=== PATIENT | female | born 1950 | race Caucasian/White ===

== ENCOUNTER → 2019-02-23 | Outpatient (CLI) | payer BC, MEDICARE ==
[~2019-02-23] MED LIST: DICL75ER; DOXY100 PO; FLUSAL2505 IH; FLUT.05NI; GABA100; LEVFLO500 PO; Norco 5-325 Ta1 EACH PO; ONDA4ODT MM; RALO60; RANI150 PO; SERT100 PO; THEO300ER PO; THEO300ERC PO; [UNRECOGNIZED DRUG - REMARK]
[2019-02-23 10:49] LABS: Alanine Aminotransfer (ALT/SGP 30 U/L (12-78); Albumin, Blood 3.9 g/dL (3.4-5.0); Albumin/Globulin Ratio 1.2 (0.8-1.8); Alk Phos 88 U/L (50-136); Anion Gap 6 mmol/L (6-16); Aspartate Aminotrans (AST/SGOT 14 U/L (12-37); Bilirubin, Total 0.2 mg/dL (0.1-1.0); Blood Urea Nitrogen 32 mg/dL (8-24); Bun/Creatinine Ratio 39.7 (12.0-20.0); CO2, Blood 26 mmol/L (21-32); Calcium, Blood 9.4 mg/dL (8.5-10.1); Chloride, Blood 110 mmol/L (98-108); Creatinine, Blood 0.81 mg/dL (0.40-1.00); Globulin, Blood 3.3 g/dL (2.2-4.0); Glomerular Filtration Rate >60 (60-); Glucose, Blood 107 mg/dL (70-99); Potassium, Blood 4.5 mmol/L (3.5-5.5); Sodium, Blood 142 mmol/L (136-145); Total Protein, Blood 7.2 g/dL (6.4-8.2)
== END | disposition home or self-care (01) ==
LOC: LAB SHORT 09:36 → LAB 09:36
PROVIDERS: Internal Medicine Hematology & Oncology
DX: M81.0 Age-related osteoporosis without current pathological fracture (principal); D50.9 Iron deficiency anemia, unspecified
CPT/HCPCS: 80053

== ENCOUNTER 2019-05-24 06:46 | Day surgery (SDC) | payer BC, MEDICARE ==
[~2019-05-24] VITALS: Ht 170.2 cm; Wt 80.4 kg
[~2019-05-24 06:46] MED LIST changes: +ALBU2.5V5 INH; +DULERA 200 MCG/13 GM INH; +ESOMEPRAZOLE MA40 MG PO; -GABA100; +GABA100 PO; +HYDR1TAB94 PO; +IRBE150 PO; +OMEP20ER PO
== END 2019-05-24 09:15 | disposition home or self-care (01) ==
LOC: ORSCSDS 06:46
PROVIDERS: Internal Medicine Gastroenterology
PROC: 0DBE8ZX Excision of Large Intestine, Via Natural or Artificial Opening Endoscopic, Diagnostic (ICD-10-PCS; principal; 2019-05-24 08:00)
PROC: 0DBH8ZX Excision of Cecum, Via Natural or Artificial Opening Endoscopic, Diagnostic (ICD-10-PCS; principal; 2019-05-24 08:00)
DX: Z12.11 Encounter for screening for malignant neoplasm of colon (principal); K63.3 Ulcer of intestine; K57.30 Diverticulosis of large intestine without perforation or abscess without bleeding; K52.9 Noninfective gastroenteritis and colitis, unspecified; K21.9 Gastro-esophageal reflux disease without esophagitis; F32.9 Major depressive disorder, single episode, unspecified; J45.909 Unspecified asthma, uncomplicated; E11.9 Type 2 diabetes mellitus without complications; Z79.899 Other long term (current) drug therapy
CPT/HCPCS: 82947; 88305; J0461; J2405; J2704; J7120

== ENCOUNTER 2020-07-07 13:52 | Inpatient (IN) | payer BC, MEDICARE ==
[~2020-07-07] VITALS: Ht 172.7 cm; Wt 82.1 kg
[2020-07-07 14:19] LABS: Hematocrit 40.4 % (33.0-51.0); Hemoglobin 12.4 g/dL (11.5-16.0); Mean Corpuscular HGB 29.7 pg (26.0-34.0); Mean Corpuscular HGB Conc 30.7 g/dL (31.5-36.5); Mean Corpuscular Volume 97 fL (80-100); Mean Platelet Volume 10.8 fL (9.1-12.4); Platelet Count 319 K/mm3 (150-400); RDW Coefficient Variation 13.6 % (11.7-14.2); RDW Standard Deviation 48.7 fL (35.1-46.3); Red Blood Cell Count 4.17 M/mm3 (3.80-5.20); White Blood Cell Count 12.07 K/mm3 (4.00-11.30)
[2020-07-07] MEDS ORDERED: QUET25 PO ×2 (14:33→17:48)
[2020-07-07 14:37] LABS: Alanine Aminotransfer (ALT/SGP 29 U/L (12-78); Albumin, Blood 3.1 g/dL (3.4-5.0); Albumin/Globulin Ratio 0.8 (0.8-1.8); Alk Phos 271 U/L (50-136); Anion Gap 7 mmol/L (6-16); Aspartate Aminotrans (AST/SGOT 28 U/L (12-37); Bilirubin, Total 0.6 mg/dL (0.1-1.0); Blood Urea Nitrogen 54 mg/dL (8-24); CO2, Blood 20 mmol/L (21-32); Calcium, Blood 9.1 mg/dL (8.5-10.1); Chloride, Blood 106 mmol/L (98-108); Creatinine, Blood 0.81 mg/dL (0.40-1.00); Globulin, Blood 4.1 g/dL (2.2-4.0); Glomerular Filtration Rate >60 (60-); Glucose, Blood 128 mg/dL (70-99); Potassium, Blood 4.9 mmol/L (3.5-5.5); Sodium, Blood 133 mmol/L (136-145); Total Protein, Blood 7.2 g/dL (6.4-8.2)
[2020-07-07 14:49] LABS: BAND PERCENT MAN 23 % (0-8); BASOPHILS PERCENT MAN 0 % (0-2); EOSINOPHILS PERCENT MAN 0 % (0-6); LYMPHOCYTES ABSOLUTE MAN 0.96 K/mm3 (0.84-5.20); LYMPHOCYTES PERCENT MAN 8 % (21-46); METAMYELOCYTE ABSOLUTE MAN 0.12 K/mm3 (0.00-0.00); METAMYELOCYTE PERCENT MAN 1 % (0-0); MONOCYTES ABSOLUTE MAN 0.72 K/mm3 (0.16-1.47); MONOCYTES PERCENT MAN 6 % (4-13); NEUTROPHILS ABSOLUTE MAN 10.25 K/mm3 (1.96-9.15); SEG NEUTROPHILS PERCENT MAN 62 % (41-73); TOTAL CELLS COUNTED 100
[2020-07-07 16:52] LABS: Source, Urine Clean Catch
[2020-07-07 17:06] LABS: Appearance, Urine Hazy (Clear); Blood, Urine 2+ (Neg); Color, Urine Yellow (P-Yellow); Glucose Qualitative, Urine Neg (Neg); Ketones, Urine Neg (Neg); Leukocyte Esterase, Urine 1+ (Neg); Nitrite, Urine Pos (Neg); Protein, Urine 2+ (Neg); Urobilinogen, Urine 1+ (Normal)
[2020-07-07 17:15] LABS: Bilirubin, Urine 1+ (Neg)
[2020-07-07 17:22] LABS: Bacteria Many /hpf; Hyaline Casts 0-2 /lpf (0-2); Squamous Epithelial Cells Few /hpf (Few)
[2020-07-07] MEDS ORDERED: SERT100 PO (17:48)
[2020-07-07] MEDS ORDERED: THEO300ERA PO (17:48)
[2020-07-07] MEDS ORDERED: IRBE75 PO (17:48)
[2020-07-07] MEDS ORDERED: GABA100 PO (17:48)
[2020-07-07] MEDS ORDERED: BREO ELLIPTA 11 EAC1 INH (17:49)
[2020-07-07] MEDS ORDERED: DICL75ER PO (17:49)
[2020-07-07 18:58] LABS: Influenza A, PCR Negative (NEGATIVE); Influenza B, PCR Negative (NEGATIVE); Resp Syncytial Virus, PCR Negative (NEGATIVE); SARS-Cov-2 (COVID-19) PCR, MMC Negative (NEGATIVE)
[2020-07-07] MEDS ORDERED: ALBU90OI INH (22:46)
[2020-07-08 04:52] LABS: Hematocrit 33.1 % (33.0-51.0); Hemoglobin 10.2 g/dL (11.5-16.0); Mean Corpuscular HGB 29.5 pg (26.0-34.0); Mean Corpuscular HGB Conc 30.8 g/dL (31.5-36.5); Mean Corpuscular Volume 96 fL (80-100); Mean Platelet Volume 11.1 fL (9.1-12.4); Platelet Count 232 K/mm3 (150-400); RDW Coefficient Variation 13.7 % (11.7-14.2); RDW Standard Deviation 48.2 fL (35.1-46.3); Red Blood Cell Count 3.46 M/mm3 (3.80-5.20); White Blood Cell Count 7.06 K/mm3 (4.00-11.30)
[2020-07-08 05:11] LABS: Anion Gap 7 mmol/L (6-16); Blood Urea Nitrogen 33 mg/dL (8-24); Bun/Creatinine Ratio 54.3 (12.0-20.0); CO2, Blood 21 mmol/L (21-32); Calcium, Blood 8.1 mg/dL (8.5-10.1); Chloride, Blood 114 mmol/L (98-108); Creatinine, Blood 0.61 mg/dL (0.40-1.00); Glomerular Filtration Rate >60 (60-); Glucose, Blood 106 mg/dL (70-99); Potassium, Blood 3.8 mmol/L (3.5-5.5); Sodium, Blood 142 mmol/L (136-145)
[2020-07-08 05:29] LABS: BAND PERCENT MAN 17 % (0-8); BASOPHILS PERCENT MAN 0 % (0-2); EOSINOPHILS ABSOLUTE MAN 0.07 K/mm3 (0.00-0.68); EOSINOPHILS PERCENT MAN 1 % (0-6); LYMPHOCYTES ABSOLUTE MAN 1.27 K/mm3 (0.84-5.20); LYMPHOCYTES PERCENT MAN 18 % (21-46); MONOCYTES ABSOLUTE MAN 0.56 K/mm3 (0.16-1.47); MONOCYTES PERCENT MAN 8 % (4-13); NEUTROPHILS ABSOLUTE MAN 5.15 K/mm3 (1.96-9.15); SEG NEUTROPHILS PERCENT MAN 56 % (41-73); TOTAL CELLS COUNTED 100
--- NOTE | 2020-07-08 05:52 | NUR ---
SHIFT SUMMARY RECIEVED REPORT FROM NARENDRA HARRISON, ED @ 193. ARRIVED TO MEDICAL FLOOR @ 1949 VIA STRETCHER MINIMAL ASSISTANCE NEEDED AT TRANSFER. ORIENTED TO ROOM AND CALL SYSTEM. A/O, ABLE TO MAKE NEEDS KNOWN. COOPERATIVE WITH CARE. CALLS AND ANSWERS QUESTIONS APPROPRIATELY. RAMPART, WEARS HEARING AIDS THAT ARE ON BEDSIDE TABLE IN CONTAINER. UP WITH SBA TO BSC; NEEDS HELP WITH ITZEL CARE. MOVES SLOWLY BUT STEADY. CONTINUES TO INFUSE NS X1 BAG WITHOUT COMPLICATIONS. NO ACUTE CHANGES NOTED OVERNIGHT. APPEARED TO REST MINIMALLY. BED REMAINS IN LOWEST POSITION. CALL LIGHT AND BELONGINGS WITHIN REACH. CONTINUE WITH CURRENT PLAN OF CARE. REPORT TO MANSI HARRISON.
--- NOTE | 2020-07-08 18:25 | NUR ---
SUMMARY PT IS A/O X4, PLEASANT AFFECT. SHE STATE CONTINUING WEAKNESS/FATIGUE HOWEVER STATE IMPROVED FROM PREVIOUS DAYS. STATE NO PAIN T/O DAY. LOOSE, MUCOUSY STOOLS CONTINUE, ALSO IMPROVING. DR SHEPHERD ORDER STOOL CX, SAMPLE SENT TO LAB. IV ANTIBX FLAGYL CONTINUES. ADD IV ROCEPHIN R/T POSSIBLE UTI. PT IS UP SBA TO BR. SHE WAS UP IN CHAIR FOR PORTION OF DAY. VSS/AFEBRILE.
[2020-07-09 04:41] LABS: BASOPHILS ABSOLUTE AUTO 0.05 K/mm3 (0.00-0.23); BASOPHILS PERCENT AUTO 1 % (0-2); EOSINOPHILS ABSOLUTE AUTO 0.16 K/mm3 (0.00-0.68); EOSINOPHILS PERCENT AUTO 3 % (0-6); Hematocrit 30.1 % (33.0-51.0); Hemoglobin 9.1 g/dL (11.5-16.0); IMMATURE GRAN ABSOLUTE AUTO 0.03 K/mm3 (0.00-0.10); IMMATURE GRAN PERCENT AUTO 1 % (0-1); LYMPHOCYTES ABSOLUTE AUTO 1.03 K/mm3 (0.84-5.20); LYMPHOCYTES PERCENT AUTO 18 % (21-46); MONOCYTES ABSOLUTE AUTO 0.45 K/mm3 (0.16-1.47); MONOCYTES PERCENT AUTO 8 % (4-13); Mean Corpuscular HGB 28.8 pg (26.0-34.0); Mean Corpuscular HGB Conc 30.2 g/dL (31.5-36.5); Mean Corpuscular Volume 95 fL (80-100); Mean Platelet Volume 10.6 fL (9.1-12.4); NEUTROPHILS ABSOLUTE AUTO 4.08 K/mm3 (1.96-9.15); NEUTROPHILS PERCENT AUTO 70 % (41-73); Platelet Count 237 K/mm3 (150-400); RDW Coefficient Variation 13.5 % (11.7-14.2); RDW Standard Deviation 47.5 fL (35.1-46.3); Red Blood Cell Count 3.16 M/mm3 (3.80-5.20)
--- NOTE | 2020-07-09 05:04 | NUR ---
SHIFT SUMMARY- PT. A&O, INDEPENDENT IN ROOM. NO COMPLAINTS T/O THE NIGHT. PT. REPORTS IMPROVEMENT IN LOOSE STOOLS. ASLEEP DURING THE NIGHT, NO APPARENT DISTRESS NOTED. VSS. CALL LIGHT WITHIN REACH AND SIDE RAILS UPX2. WILL CONT TO MONITOR.
[2020-07-09 05:05] LABS: Anion Gap 9 mmol/L (6-16); Blood Urea Nitrogen 19 mg/dL (8-24); Bun/Creatinine Ratio 31.6 (12.0-20.0); CO2, Blood 20 mmol/L (21-32); Calcium, Blood 8.1 mg/dL (8.5-10.1); Chloride, Blood 116 mmol/L (98-108); Glomerular Filtration Rate >60 (60-); Glucose, Blood 107 mg/dL (70-99); Potassium, Blood 3.7 mmol/L (3.5-5.5); Sodium, Blood 145 mmol/L (136-145)
--- NOTE | 2020-07-09 17:22 | NUR ---
SUMMARY PT IS A/O X4, PLEASANT/COOP AFFECT. DX COLITIS, UTI. SHE STATES DIARRHEA CONTINUES HOWEVER FREQUENCY IMPROVING. MULT IV & ORAL ANTIBX CONTINUE. WBC WNL THIS AM. LUNS CLEAR, ON RA, NO COUGH. SHE IS CONTINENT, NO URINARY URGENCY OR FREQUENCY. SHE IS UP IND TO BR. GAIT STEADY. VSS/AFEBRILE.
--- NOTE | 2020-07-10 01:05 | NUR ---
NEW 20G IV PLACED TO L.FA BY KASEY ORELLANA AFTER PREVIOUS IV INFILTRATED TO R.FA DURING IV ABX INFUSION. IV WAS DC'D WNL.
--- NOTE | 2020-07-10 04:19 | NUR ---
SUMMARY: PT A/O X2-3 W/DELAYED RESPONSES AND SLOW, SUCCINCT SPEECH. CIWAS REMAIN 0. HE'S VERY WEAK/DECONDITIONED AND LETHARGIC AT TIMES. HE SLEPT MAJORITY OF NOCTE EXCEPT FOR WHEN PROVIDING ASSIST W/ADL'S. TURN SCHEDULE MAINTAINED AND ATTENDS/LINEN CHANGED PRN FOR URINARY W/STOOL INCONTINENCE. ORAL SUCTIONING AND MOUTH CARE PERFORMED PRN FOR SM.AMT. THICK SAM SPUTUM. BRUISES AND ABRASIONS NOTED TO EXT'S. BANDAID CHANGED TO L.INNER KNEE W/SAM PURULENT DRAINAGE OBSERVED. MEPILEX TO CHEST IS C/D/I. HE REMAINS IN NSER AT 70'S BPM. PT DOESN'T CALL FOR ASSIST BUT SPECIFIES NEEDS WHEN STAFF IN ROOM. BED ALARM ON FOR POSSIBLE FALL RISK, PT MADE NO ATTEMPTS OOB BY SELF. HE DENIED PAIN BUT JOKED "ONLY THINK HURTING WAS PRIDE". VSS/AFEBRILE, NO ACUTE CHANGES. SNF LIKELY NEEDED UPON D/C. WCMEGHAN AND REPORT TO DAY RN.
--- NOTE | 2020-07-10 04:28 | NUR ---
SUMMARY: A/OX4, INDEPENDENT AND CALLS APPROPRIATELY. SHE'S DENIEND PAIN AND ALL OTHER COMPLAINTS. IV ABX RECIEVED T/O NOCTE THEN SL. NEW IV WAS PLACED AFTER PREVIOUS IV INFILTRATED AND WAS DC'D WNL. SHE WAS UP AD MARGAERT TO VOID AND CONT'S TO REPORT LOOSE BM'S WHICH HAVE DECREASED IN FREQUENCY, ONLY X1 EPISODE THIS SHIFT. STOOL AND BLOOD CX'S STILL PENDING. NO ACUTE CHANGES, VSS AND AFEBRILE. WTCM AND REPORT TO DAY RN.
[2020-07-10 04:57] LABS: BASOPHILS ABSOLUTE AUTO 0.05 K/mm3 (0.00-0.23); BASOPHILS PERCENT AUTO 1 % (0-2); EOSINOPHILS ABSOLUTE AUTO 0.14 K/mm3 (0.00-0.68); EOSINOPHILS PERCENT AUTO 2 % (0-6); Hematocrit 33.5 % (33.0-51.0); Hemoglobin 10.3 g/dL (11.5-16.0); IMMATURE GRAN ABSOLUTE AUTO 0.07 K/mm3 (0.00-0.10); IMMATURE GRAN PERCENT AUTO 1 % (0-1); LYMPHOCYTES ABSOLUTE AUTO 1.38 K/mm3 (0.84-5.20); LYMPHOCYTES PERCENT AUTO 22 % (21-46); MONOCYTES ABSOLUTE AUTO 0.52 K/mm3 (0.16-1.47); MONOCYTES PERCENT AUTO 8 % (4-13); Mean Corpuscular HGB 29.3 pg (26.0-34.0); Mean Corpuscular HGB Conc 30.7 g/dL (31.5-36.5); Mean Corpuscular Volume 95 fL (80-100); Mean Platelet Volume 11.2 fL (9.1-12.4); NEUTROPHILS ABSOLUTE AUTO 4.08 K/mm3 (1.96-9.15); NEUTROPHILS PERCENT AUTO 66 % (41-73); Platelet Count 270 K/mm3 (150-400); RDW Coefficient Variation 13.4 % (11.7-14.2); RDW Standard Deviation 46.9 fL (35.1-46.3); Red Blood Cell Count 3.52 M/mm3 (3.80-5.20); White Blood Cell Count 6.24 K/mm3 (4.00-11.30)
[2020-07-10 05:25] LABS: Anion Gap 11 mmol/L (6-16); Blood Urea Nitrogen 17 mg/dL (8-24); Bun/Creatinine Ratio 28.4 (12.0-20.0); CO2, Blood 19 mmol/L (21-32); Calcium, Blood 8.9 mg/dL (8.5-10.1); Chloride, Blood 113 mmol/L (98-108); Glomerular Filtration Rate >60 (60-); Glucose, Blood 110 mg/dL (70-99); Potassium, Blood 3.3 mmol/L (3.5-5.5); Sodium, Blood 143 mmol/L (136-145)
[2020-07-10] MEDS ORDERED: LACT PO (13:33)
--- NOTE | 2020-07-10 18:12 | NUR ---
PT WAS DISCHARGES VIA WHEELCHAIR AND POSETIONS AT SIDE. PT WAS ALERT AND ORIENTED X4, MADE NO COMPLAINTS OF PAIN, WAS EDUCATED ON DISCHARGE INSTRUCTIONS AND FOLLOW UP APPOINTMENTS NEEDED WITH PCP. IV MARYLU'Arley AND WNL.
[2020-09-25] MEDS ORDERED: ALBU90OI INH (12:03)
[2020-09-25] MEDS ORDERED: ALBU2.5V5 INH (12:03)
[2020-09-25] MEDS ORDERED: BREO ELLIPTA 11 EAC1 INH (12:04)
[2020-09-25] MEDS ORDERED: DICL75ER PO (12:04)
[2020-09-25] MEDS ORDERED: IRBE150 PO (12:05)
[2020-09-25] MEDS ORDERED: FLONASE ALLERG9.9 M2 (12:05)
[2020-09-25] MEDS ORDERED: Norco 5-325 Ta1 EACH PO (12:05)
[2020-09-25] MEDS ORDERED: GABA100 PO (12:05)
[2020-09-25] MEDS ORDERED: RISPERDAL PO (12:06)
[2020-09-25] MEDS ORDERED: SEROQUEL25 MG PO (12:06)
[2020-09-25] MEDS ORDERED: OMEPRAZOLE MAGN20 MG PO (12:06)
[2020-09-25] MEDS ORDERED: THEO300ERA PO (12:07)
[2020-09-25] MEDS ORDERED: ZOLOFT100 MG PO (12:07)
== END 2020-07-10 16:00 | disposition home or self-care (01) | DRG 872 ==
LOC: ER 13:52 → MEDS 19:18
PROVIDERS: Emergency Medicine; Student in an Organized Health Care Education/Training Program; ADMIT Hospitalist
DX: A41.51 Sepsis due to Escherichia coli [E. coli] (principal); A09 Infectious gastroenteritis and colitis, unspecified; G62.9 Polyneuropathy, unspecified; Z20.822 Contact with and (suspected) exposure to COVID-19; I10 Essential (primary) hypertension; J45.909 Unspecified asthma, uncomplicated; R65.20 Severe sepsis without septic shock; F32.9 Major depressive disorder, single episode, unspecified; D72.825 Bandemia; Z66 Do not resuscitate; M79.7 Fibromyalgia
CPT/HCPCS: 0241U; 36415; 74176; 80048; 80053; 81001; 83605; 83690; 83735; 84132; 84145; 85025; 85651; 86140; 87015; 87040; 87045; 87046; 87077; 87086; 87186; 87205; 87493; 87899; 94640; 94760; 96360-59; 96361; 96372-59; 99285-25; A9270; J0696; J1650; J7030; J7050; P9612

== ENCOUNTER 2020-09-30 12:34 | Day surgery (SDC) | payer BC, MEDICARE ==
[~2020-09-30] VITALS: Ht 170.2 cm; Wt 74.3 kg
[~2020-09-30 12:34] MED LIST changes: +ALBU90OI INH; +BREO ELLIPTA 11 EAC1 INH; +DICL75ER PO; +FLONASE ALLERG9.9 M2; +IRBE75 PO; +LACT PO; +OMEPRAZOLE MAGN20 MG PO; +QUET25 PO; +RISPERDAL PO; +SEROQUEL25 MG PO; +THEO300ERA PO; +ZOLOFT100 MG PO
--- NOTE | 2020-09-30 13:17 | NUR ---
09/30/20 1317 Kyra Oro PT COMPLETED AN ENEMA AT HOME POST-PREP.
== END 2020-09-30 15:39 | disposition home or self-care (01) ==
LOC: ORSCSDS 12:34
PROVIDERS: Internal Medicine Gastroenterology
PROC: 0DBE8ZX Excision of Large Intestine, Via Natural or Artificial Opening Endoscopic, Diagnostic (ICD-10-PCS; principal; 2020-09-30 13:30)
PROC: 3E0H8KZ Introduction of Other Diagnostic Substance into Lower GI, Via Natural or Artificial Opening Endoscopic (ICD-10-PCS; principal; 2020-09-30 13:30)
DX: K52.89 Other specified noninfective gastroenteritis and colitis (principal); K56.699 Other intestinal obstruction unspecified as to partial versus complete obstruction; K57.30 Diverticulosis of large intestine without perforation or abscess without bleeding; K64.1 Second degree hemorrhoids; I10 Essential (primary) hypertension; E11.9 Type 2 diabetes mellitus without complications; J45.909 Unspecified asthma, uncomplicated; Z79.899 Other long term (current) drug therapy
CPT/HCPCS: 82947; 88305; J2704; J7040; J7120

== ENCOUNTER → 2021-09-15 | Outpatient (CLI) | payer BC, MEDICARE ==
[2021-09-15 14:57] LABS: BASOPHILS ABSOLUTE AUTO 0.02 K/mm3 (0.00-0.23); BASOPHILS PERCENT AUTO 0 % (0-2); EOSINOPHILS ABSOLUTE AUTO 0.07 K/mm3 (0.00-0.68); EOSINOPHILS PERCENT AUTO 1 % (0-6); Hematocrit 36.7 % (33.0-51.0); Hemoglobin 12.1 g/dL (11.5-16.0); IMMATURE GRAN ABSOLUTE AUTO 0.01 K/mm3 (0.00-0.10); IMMATURE GRAN PERCENT AUTO 0 % (0-1); LYMPHOCYTES ABSOLUTE AUTO 1.22 K/mm3 (0.84-5.20); LYMPHOCYTES PERCENT AUTO 22 % (21-46); MONOCYTES ABSOLUTE AUTO 0.42 K/mm3 (0.16-1.47); MONOCYTES PERCENT AUTO 8 % (4-13); Mean Corpuscular HGB 30.7 pg (26.0-34.0); Mean Corpuscular Volume 93 fL (80-100); Mean Platelet Volume 10.4 fL (9.1-12.4); NEUTROPHILS ABSOLUTE AUTO 3.89 K/mm3 (1.96-9.15); NEUTROPHILS PERCENT AUTO 69 % (41-73); Platelet Count 209 K/mm3 (150-400); RDW Coefficient Variation 12.3 % (11.7-14.2); RDW Standard Deviation 42.3 fL (35.1-46.3); Red Blood Cell Count 3.94 M/mm3 (3.80-5.20); White Blood Cell Count 5.63 K/mm3 (4.00-11.30)
[2021-09-15 15:12] LABS: Alanine Aminotransfer (ALT/SGP 15 U/L (12-78); Albumin, Blood 3.6 g/dL (3.4-5.0); Albumin/Globulin Ratio 1.1 (0.8-1.8); Alk Phos 90 U/L (40-126); Anion Gap 13 mmol/L (6-16); Aspartate Aminotrans (AST/SGOT 9 U/L (12-37); Bilirubin, Total 0.2 mg/dL (0.1-1.0); Blood Urea Nitrogen 22 mg/dL (8-24); CO2, Blood 20 mmol/L (21-32); Calcium, Blood 9.6 mg/dL (8.5-10.1); Chloride, Blood 106 mmol/L (98-108); Creatinine, Blood 0.71 mg/dL (0.40-1.00); Globulin, Blood 3.3 g/dL (2.2-4.0); Glomerular Filtration Rate >60 (60-); Glucose, Blood 107 mg/dL (70-99); Potassium, Blood 3.2 mmol/L (3.5-5.5); Sodium, Blood 139 mmol/L (136-145); Total Protein, Blood 6.9 g/dL (6.4-8.2)
== END | disposition home or self-care (01) ==
LOC: LAB SHORT 14:52 → LAB 14:52
PROVIDERS: Physician Assistant
DX: R11.2 Nausea with vomiting, unspecified (principal)
CPT/HCPCS: 80053; 83690; 85025

== ENCOUNTER 2021-10-14 06:02 | Day surgery (SDC) | payer BC, MEDICARE ==
[~2021-10-14] VITALS: Ht 172.7 cm; Wt 74.2 kg
--- NOTE | 2021-10-14 07:15 | NUR ---
PT ADMITTED TO [facility]. AGREES WITH PLANNED SURGERY. LUNG SOUNDS CLEAR.
--- NOTE | 2021-10-14 10:46 | NUR ---
PATIENT ARRIVED FROM PACU TODAY 10/14/21 AT 1030. POD 0 LEFT TOTAL KNEE PATIENT IS A&OX4. VS ARE WNL AND IS ON RA. PATIENT REPORTS A 7/10 PAIN. WILL MEDICATE WITH PO PAIN MEDS AFTER SHES TAKEN A FEW BITES OF FOOD. LEFT KNEE HAS ALYX WRAP THAT IS C/D/I. PATIENT IS TELLER. CALL LIGHT WITHIN REACH. DAUGHTER AT BEDSIDE. DENIES NUMBNESS/TINGLING OUT OF HER BASELINE NEUROPATHY.
--- NOTE | 2021-10-14 16:05 | NUR ---
SHIFT SUMMARY: POD 0 LEFT TOTAL KNEE PATIENT A&OX4. VS ARE WNL AND IS ON RA. PATIENTS PAIN IS MANAGED WITH PO NORCO, TYLENOL, AND IV TORADOL. LEFT KNEE HAS ALYX WRAP AND POLAR PACK IN PLACE THAT IS C/D/I. PATIENT DENIES NUMBNESS AND TINGLING THAT ISN'T HER BASELINE. PATIENT HAS ALREADY WORKED WITH PT ONCE TODAY AND IS A SBA WITH FWW AND GAIT BELT. TOLERATING PO INTAKE AND IS VOIDING. CALLS APPROPRIATELY. CALL LIGHT WITHIN REACH. THE PLAN IS TO HAVE PT AGAIN TOMORROW AND DISCHARGE HOME TOMORROW IF APPROPRIATE.
--- NOTE | 2021-10-15 04:28 | NUR ---
SHIFT SUMMARY POD1 LEFT TKA. ALYX WRAP TO KNEE REMAINS CDI WITH POLAR PACK IN PLACE. 1 SBA USING FWW + GB AND WBAT. 1 NORCO/TYLENOL/TORADOL FOR PAIN MANAGEMENT. USES CALL LIGHT APPROPRIATELY. PLAN FOR PT TO DISCHARGE HOME TODAY AFTER CLEARING PT/OT.
[2021-10-15 05:13] LABS: BASOPHILS ABSOLUTE AUTO 0.04 K/mm3 (0.00-0.23); BASOPHILS PERCENT AUTO 1 % (0-2); EOSINOPHILS ABSOLUTE AUTO 0.07 K/mm3 (0.00-0.68); EOSINOPHILS PERCENT AUTO 1 % (0-6); Hematocrit 36.5 % (33.0-51.0); Hemoglobin 11.4 g/dL (11.5-16.0); IMMATURE GRAN ABSOLUTE AUTO 0.02 K/mm3 (0.00-0.10); IMMATURE GRAN PERCENT AUTO 0 % (0-1); LYMPHOCYTES ABSOLUTE AUTO 1.75 K/mm3 (0.84-5.20); LYMPHOCYTES PERCENT AUTO 21 % (21-46); MONOCYTES ABSOLUTE AUTO 0.77 K/mm3 (0.16-1.47); MONOCYTES PERCENT AUTO 9 % (4-13); Mean Corpuscular HGB 30.3 pg (26.0-34.0); Mean Corpuscular HGB Conc 31.2 g/dL (31.5-36.5); Mean Corpuscular Volume 97 fL (80-100); Mean Platelet Volume 10.6 fL (9.1-12.4); NEUTROPHILS ABSOLUTE AUTO 5.76 K/mm3 (1.96-9.15); NEUTROPHILS PERCENT AUTO 69 % (41-73); Platelet Count 203 K/mm3 (150-400); RDW Coefficient Variation 12.4 % (11.7-14.2); RDW Standard Deviation 44.4 fL (35.1-46.3); Red Blood Cell Count 3.76 M/mm3 (3.80-5.20); White Blood Cell Count 8.41 K/mm3 (4.00-11.30)
[2021-10-15 05:43] LABS: Anion Gap 6 mmol/L (6-16); Blood Urea Nitrogen 21 mg/dL (8-24); Bun/Creatinine Ratio 36.1 (12.0-20.0); CO2, Blood 24 mmol/L (21-32); Calcium, Blood 8.7 mg/dL (8.5-10.1); Chloride, Blood 108 mmol/L (98-108); Creatinine, Blood 0.58 mg/dL (0.40-1.00); Glomerular Filtration Rate >60 (60-); Glucose, Blood 127 mg/dL (70-99); Potassium, Blood 3.9 mmol/L (3.5-5.5); Sodium, Blood 138 mmol/L (136-145)
[2021-10-15] MEDS ORDERED: ELIQUIS2.5 MG PO (08:45)
[2021-10-15] MEDS ORDERED: Norco 5-325 Ta1 EACH PO (08:46)
--- NOTE | 2021-10-15 12:45 | NUR ---
DISCHARGE SUMMARY: PT WORKED WITH THERAPY AND WAS APPROVED FOR DISCHARGE. EATING, DRINKING, VOIDING. PAIN WAS WELL MANAGED T/O THE SHIFT AND THE PATIENT EXPRESSED MINIMAL PAIN AND DISCOMFORT IN THE LK. DISCUSSED DC INFORMATION WITH THE PATIENT AND THE . SCRIPTS, POLAR PACK, AND AQUACELS GIVEN. PT WAS WHEELED OUT BY WHEELCHAIR TO A PRIVATE VEHICLE.
== END 2021-10-15 12:47 | disposition home or self-care (01) ==
LOC: ORSCMMR 06:02 → ORD 08:15 → ORSCMMR 08:15 → SURS 10:19 → ORSCMMR 10-15 12:47
PROVIDERS: Orthopaedic Surgery
PROC: 8E0Y0CZ Robotic Assisted Procedure of Lower Extremity, Open Approach (ICD-10-PCS; principal; 2021-10-14 07:45)
PROC: 0SRD0JA Replacement of Left Knee Joint with Synthetic Substitute, Uncemented, Open Approach (ICD-10-PCS; principal; 2021-10-14 07:45)
DX: M17.12 Unilateral primary osteoarthritis, left knee (principal); J45.909 Unspecified asthma, uncomplicated; K21.9 Gastro-esophageal reflux disease without esophagitis; E11.40 Type 2 diabetes mellitus with diabetic neuropathy, unspecified; M79.7 Fibromyalgia; Z79.899 Other long term (current) drug therapy
CPT/HCPCS: 27447; S2900; 36415; 73560-LT; 80048; 82947; 85025; 94640; 94664; 94760; 97110; 97116; 97162; A9270; C1776; J0171; J0690; J0735; J1100; J1885; J2250; J2370; J2405; J2704; J2795; J3010; J7120

== ENCOUNTER → 2023-04-24 | Outpatient (CLI) | payer BC, MEDICARE ==
[~2023-04-24] MED LIST changes: +ELIQUIS2.5 MG PO
[2023-04-24 13:47] LABS: BASOPHILS ABSOLUTE AUTO 0.07 K/mm3 (0.00-0.23); BASOPHILS PERCENT AUTO 1 % (0-2); EOSINOPHILS ABSOLUTE AUTO 0.31 K/mm3 (0.00-0.68); EOSINOPHILS PERCENT AUTO 5 % (0-6); Hematocrit 38.9 % (33.0-51.0); Hemoglobin 12.9 g/dL (11.5-16.0); IMMATURE GRAN ABSOLUTE AUTO 0.02 K/mm3 (0.00-0.10); IMMATURE GRAN PERCENT AUTO 0 % (0-1); LYMPHOCYTES ABSOLUTE AUTO 1.15 K/mm3 (0.84-5.20); LYMPHOCYTES PERCENT AUTO 17 % (21-46); MONOCYTES PERCENT AUTO 7 % (4-13); Mean Corpuscular HGB Conc 33.2 g/dL (31.5-36.5); Mean Corpuscular Volume 94 fL (80-100); Mean Platelet Volume 10.1 fL (9.1-12.4); NEUTROPHILS ABSOLUTE AUTO 4.75 K/mm3 (1.96-9.15); NEUTROPHILS PERCENT AUTO 70 % (41-73); Platelet Count 253 K/mm3 (150-400); RDW Coefficient Variation 12.5 % (11.7-14.2); RDW Standard Deviation 42.7 fL (35.1-46.3); Red Blood Cell Count 4.16 M/mm3 (3.80-5.20)
[2023-04-24 13:58] LABS: Albumin, Blood 3.7 g/dL (3.4-5.0); Albumin/Globulin Ratio 0.9 (0.8-1.8); Bilirubin, Total 0.3 mg/dL (0.1-1.0); Bun/Creatinine Ratio 31.3 (12.0-20.0); Calcium, Blood 9.9 mg/dL (8.5-10.1); Creatinine, Blood 0.67 mg/dL (0.40-1.00); Potassium, Blood 4.2 mmol/L (3.5-5.5); Total Protein, Blood 7.7 g/dL (6.4-8.2)
== END | disposition home or self-care (01) ==
LOC: LAB SHORT 13:39 → LAB 13:39
PROVIDERS: Physician Assistant
DX: R06.00 Dyspnea, unspecified (principal); R07.9 Chest pain, unspecified
CPT/HCPCS: 80053; 83880; 84484; 85025

== ENCOUNTER 2023-10-23 15:45 | Emergency (ER) | payer BC, MEDICARE ==
[~2023-10-23] VITALS: Ht 170.2 cm; Wt 78.5 kg
[2023-10-23] MEDS ORDERED: MethylPREDNISolone Sod Succ 125 MG Vial IV ONE (16:25)
[2023-10-23] MEDS ORDERED: DiphenhydrAMINE HCl 50 MG/ML 1ML Vial IV ONE (16:25)
[2023-10-23] MEDS ORDERED: EPIPEN0.3 MG/0.1 IM (18:15)
[2023-10-23] MEDS ORDERED: DIPH50 PO (18:15)
[2023-10-23] MEDS ORDERED: PRED20 PO (18:15)
[2023-10-23 18:30] VITALS: BP 153/65
== END 2023-10-23 19:08 | disposition home or self-care (01) ==
LOC: ER 15:45
DX: L50.0 Allergic urticaria (principal); Z88.2 Allergy status to sulfonamides; Z88.5 Allergy status to narcotic agent; Z88.1 Allergy status to other antibiotic agents; Z79.899 Other long term (current) drug therapy; J45.909 Unspecified asthma, uncomplicated
CPT/HCPCS: J1200; J2930